=== PATIENT | male | born 1945 | race Caucasian/White ===

== ENCOUNTER 2022-06-01 05:38 | Observation (INO) | payer OTHER ==
[2022-05-29 11:25] VITALS: BP 178/77
[2022-05-29 11:31] LABS: BASOPHILS % (AUTO) 1.3 % (0.0-5.0); EOSINOPHILS % (AUTO) 1.5 % (0.0-8.0); HEMATOCRIT 41.3 % (42-54); LYMPHOCYTES % (AUTO) 33.8 % (21.0-51.0); MEAN CORPUSCULAR HEMOGLOBIN 30.2 pg (27.0-33.0); MEAN CORPUSCULAR HGB CONC 32.9 g/dL (32.0-36.0); MEAN CORPUSCULAR VOLUME 91.8 fL (79-99); MONOCYTES % (AUTO) 8.8 % (3.0-13.0); NEUTROPHILS % (AUTO) 54.2 % (40.0-77.0); PLATELET COUNT (AUTO) 233 K/uL (130-400); RED CELL DISTRIBUTION WIDTH 11.9 % (11.0-15.5); WHITE BLOOD COUNT (AUTO) 4.6 K/uL (4.8-10.8)
[2022-05-29 11:42] LABS: PROTHROMBIN TIME 10.9 SEC (9.6-11.6)
[2022-05-29 11:43] LABS: PARTIAL THROMBOPLASTIN TIME 28.1 SEC (26.3-35.5)
[2022-05-29 11:53] LABS: APPEARANCE,URINE CLEAR (CLEAR); BILIRUBIN,URINE NEGATIVE (NEGATIVE); COLOR,URINE LIGHT-YELLOW (YELLOW); GLUCOSE, URINE (UA) NEGATIVE (NEGATIVE); KETONES,URINE NEGATIVE (NEGATIVE); LEUKOCYTE ESTERASE ,URINE NEGATIVE Leu/uL (NEGATIVE); NITRATE,URINE NEGATIVE (NEGATIVE); OCCULT BLOOD,URINE NEGATIVE (NEGATIVE); PH,URINE 6.5 (5.0-8.0); PROTEIN,URINE NEGATIVE (NEGATIVE); UROBILINOGEN,URINE 0.2 mg/dL (0.2-1.0)
[2022-05-29 12:45] LABS: ALBUMIN 3.6 g/dL (3.5-5.0); CARBON DIOXIDE 30 mmol/L (21-32); CHLORIDE 102 mmol/L (101-111); GLOMERULAR FILTR. RATE CALC 79 mL/min (>90); GLUCOSE,RANDOM 97 mg/dL (70-105); POTASSIUM 3.9 mmol/L (3.5-5.1); SODIUM SERUM 138 mmol/L (136-145); UREA NITROGEN, BLOOD 14 mg/dL (7-18)
[2022-05-29 12:48] LABS: CRP QUANTITATIVE < 2.00 mg/L (0.00-9.0)
[~2022-06-01] VITALS: Ht 195.6 cm; Wt 108.3 kg
[2022-06-01] VITALS (25 sets, daily range): BP systolic 106–174; BP diastolic 59–90
[~2022-06-01 05:38] MED LIST: BUPIVACAINE/PF 0.5% 30ML VIAL ONE; BUPR-113 PO; CLOP75TA32 PO; EZET10TA48 PO; GLUC-252 PO; IRBE150T24 PO; KETOROLAC 30MG VIAL (30MG/ML) ONE; LEVO75CA5 PO; METO-409 PO; MONT-39 PO; MVIT PO; OMEG-148 PO; PREG100C55 PO; ROPIVACAINE 0.5% 5MG/ML 30ML IJ ONE; SERT-440 PO; TRANEXAMIC ACID 1000MG/10ML ONE
[2022-06-01] MEDS ORDERED: TRANEXAMIC ACID 1000MG/10ML ONE (06:17)
[2022-06-01] MEDS ORDERED: LACTATED RINGERS 1000ML 1,000 ML IV ONE (06:33)
[2022-06-01] MEDS ORDERED: CLINDAMYCIN IVPB 900MG/50ML 50 ML IV ONE (06:34)
[2022-06-01] MEDS ORDERED: PROPOFOL 10 MG/ML 20ML VIAL IV ONE (06:58)
[2022-06-01] MEDS ORDERED: LIDOCAINE PF 100MG/5ML (2%) SYRINGE 5ML ONE (06:58)
[2022-06-01] MEDS ORDERED: SUCCINYLCHOLINE CHLORIDE 20 MG/ML 10 ML VIAL ONE (06:58)
[2022-06-01] MEDS ORDERED: MIDAZOLAM HCL 1 MG/ML 2ML VIAL ONE (06:58)
[2022-06-01] MEDS ORDERED: ROPIVACAINE 0.5% 5MG/ML 30ML IJ ONE (06:58)
[2022-06-01] MEDS ORDERED: FENTANYL CITRATE PF 50 MCG/1 ML 2ML VIAL ONE (06:59)
[2022-06-01] MEDS ORDERED: ROCURONIUM 10MG/1ML SYR 10 MG/ML ML ONE (06:59)
[2022-06-01] MEDS ORDERED: GLYCOPYRROLATE 1 MG/5 ML SYRINGE ONE (07:32)
[2022-06-01] MEDS ORDERED: EPHEDRINE SULFATE 50 MG/ML AMPULE ONE (07:33)
[2022-06-01] MEDS ORDERED: DEXAMETHASONE SOD PHOSPHATE 4 MG/ML 1ML VIAL ONE (08:27)
[2022-06-01] MEDS ORDERED: NEOSTIGMINE 5MG/5ML SYR IV ONE (09:03)
[2022-06-01] MEDS ORDERED: ONDANSETRON 4MG INJ ONE (09:03)
[2022-06-01] MEDS ORDERED: TRANEXAMIC ACID 1000MG/10ML IV ONE (09:05)
[2022-06-01] MEDS ORDERED: FERROUS FUMARATE 324 MG TABLET PO PRN (09:30)
[2022-06-01] MEDS ORDERED: LIDOCAINE HCL-MPF 1% 2ML VIAL IV PRN (09:30)
[2022-06-01] MEDS: 0.9%NACL 1000ML 1,000 ML IV SCH ×2 (09:30→21:19)
[2022-06-01] MEDS ORDERED: POTASSIUM CHLORIDE 20MEQ/100ML 100 ML IV PRN (09:30)
[2022-06-01] MEDS ORDERED: CALCIUM CARB 500MG PO PRN (09:30)
[2022-06-01] MEDS ORDERED: TRAMADOL HCL 50 MG TABLET PO PRN (09:30)
[2022-06-01] MEDS ORDERED: DiphenhydrAMINE HCL 50 MG/ML VIAL IVP PRN (09:30)
[2022-06-01] MEDS ORDERED: ONDANSETRON 4MG INJ IVP PRN (09:30)
[2022-06-01] MEDS ORDERED: MEPERIDINE-PF 25 MG/ML SYG ONE (09:47)
[2022-06-01] MEDS: KETOROLAC 15MG/ML VIAL (15MG/ML) IV SCH ×2 (10:03→17:38)
[2022-06-01] MEDS ORDERED: ATOR-2 PO (10:53)
[2022-06-01] MEDS: HYDROCODONE/ACETAMINOPHEN 5/325 MG TAB PO PRN ×3 (11:10→21:24)
[2022-06-01] MEDS: PREGABALIN 100 MG CAPSULE PO SCH ×2 (13:54→21:21)
[2022-06-01] MEDS: CEFAZOLIN SODIUM 2 GM VIAL IVP SCH (17:37)
[2022-06-01] MEDS: GLUCOSAMINE-CHONDROITIN PO SCH (21:00)
[2022-06-01] MEDS: DOCUSATE SODIUM 100 MG CAP PO SCH (21:21)
[2022-06-01] MEDS: MONTELUKAST SODIUM 10 MG TAB PO SCH (21:21)
[2022-06-01] MEDS: ATORVASTATIN 40 MG TABLET PO SCH (21:21)
[2022-06-02] MEDS: KETOROLAC 15MG/ML VIAL (15MG/ML) IV SCH (00:14)
[2022-06-02] MEDS: CEFAZOLIN SODIUM 2 GM VIAL IVP SCH (00:14)
[2022-06-02 04:35] VITALS: BP 137/58
[2022-06-02 05:02] LABS: HEMATOCRIT 28.2 % (42-54); MEAN CORPUSCULAR HEMOGLOBIN 31.1 pg (27.0-33.0); MEAN CORPUSCULAR VOLUME 94.3 fL (79-99); RED BLOOD CELL COUNT(AUTO) 2.99 MIL/uL (4.50-6.20); RED CELL DISTRIBUTION WIDTH 11.9 % (11.0-15.5)
[2022-06-02 05:18] LABS: CREATININE 0.9 mg/dL (0.5-1.5)
[2022-06-02 05:24] LABS: POTASSIUM 2.7 mmol/L (3.5-5.1)
[2022-06-02] MEDS: 0.9%NACL 1000ML 1,000 ML IV SCH (05:30)
[2022-06-02] MEDS: KCL 20 MEQ ERTAB PO PRN ×2 (06:22→09:36)
[2022-06-02] MEDS: LEVOTHYROXINE 75 MCG TABLET PO SCH (06:22)
[2022-06-02] MEDS: HYDROCODONE/ACETAMINOPHEN 5/325 MG TAB PO PRN ×3 (06:25→19:05)
[2022-06-02 08:11] VITALS: BP 118/52
[2022-06-02] MEDS: ASPIRIN 325MG TAB PO SCH (09:00)
[2022-06-02] MEDS: METOPROLOL SUCCINATE 50 MG TAB.SR.24H PO SCH ×2 (09:00→09:38)
[2022-06-02] MEDS: GLUCOSAMINE-CHONDROITIN PO SCH ×2 (09:00→20:55)
[2022-06-02] MEDS: EZETIMIBE 10 MG TAB PO SCH (09:00)
[2022-06-02] MEDS: LOSARTAN 50 MG TABLET PO SCH ×2 (09:00→09:38)
[2022-06-02] MEDS: BUPROPION HCL 150 MG TABLET.SA PO SCH (09:00)
[2022-06-02] MEDS: POLYETHYLENE GLYCOL 3350 17 GM POWD.PACK PO SCH (09:36)
[2022-06-02] MEDS: KETOROLAC 15MG/ML VIAL (15MG/ML) IV PRN ×2 (09:36→14:54)
[2022-06-02] MEDS: CLOPIDOGREL 75MG TAB PO SCH (09:37)
[2022-06-02] MEDS: DOCUSATE SODIUM 100 MG CAP PO SCH ×2 (09:37→20:54)
[2022-06-02] MEDS: CYCLOBENZAPRINE HCL 10 MG TABLET PO PRN ×2 (09:37→16:10)
[2022-06-02] MEDS: PREGABALIN 100 MG CAPSULE PO SCH ×3 (09:37→20:54)
[2022-06-02] MEDS: FISH OIL 1000 MG/CAP PO SCH (09:37)
[2022-06-02] MEDS: SERTRALINE HCL 50 MG TABLET PO SCH (09:37)
[2022-06-02] MEDS: MULTIVITAMIN TABLET PO SCH (09:38)
[2022-06-02 11:02] VITALS: BP 114/41
[2022-06-02] MEDS: POTASSIUM CHLORIDE 10% ELIXIR 20 MEQ/15 ML UDCUP PO PRN ×2 (14:54→14:55)
[2022-06-02 16:29] VITALS: BP 153/59
[2022-06-02] MEDS: ATORVASTATIN 40 MG TABLET PO SCH (20:53)
[2022-06-02] MEDS: MONTELUKAST SODIUM 10 MG TAB PO SCH (20:54)
[2022-06-03 00:14] VITALS: BP 164/74
[2022-06-03 05:02] VITALS: BP 150/66
[2022-06-03] MEDS: LEVOTHYROXINE 75 MCG TABLET PO SCH (06:28)
[2022-06-03] MEDS: HYDROCODONE/ACETAMINOPHEN 5/325 MG TAB PO PRN ×2 (06:31→12:18)
[2022-06-03 07:33] VITALS: BP 101/52
[2022-06-03] MEDS: POLYETHYLENE GLYCOL 3350 17 GM POWD.PACK PO SCH (08:52)
[2022-06-03] MEDS: SERTRALINE HCL 50 MG TABLET PO SCH (08:52)
[2022-06-03] MEDS: MULTIVITAMIN TABLET PO SCH (08:53)
[2022-06-03] MEDS: LOSARTAN 50 MG TABLET PO SCH (08:53)
[2022-06-03] MEDS: CLOPIDOGREL 75MG TAB PO SCH (08:53)
[2022-06-03] MEDS: DOCUSATE SODIUM 100 MG CAP PO SCH (08:53)
[2022-06-03] MEDS: FISH OIL 1000 MG/CAP PO SCH (08:53)
[2022-06-03] MEDS: CYCLOBENZAPRINE HCL 10 MG TABLET PO PRN (08:54)
[2022-06-03] MEDS: PREGABALIN 100 MG CAPSULE PO SCH ×2 (08:54→15:05)
[2022-06-03] MEDS: GLUCOSAMINE-CHONDROITIN PO SCH (08:55)
[2022-06-03] MEDS: EZETIMIBE 10 MG TAB PO SCH (08:55)
[2022-06-03] MEDS: ASPIRIN 325MG TAB PO SCH (08:55)
[2022-06-03] MEDS: BUPROPION HCL 150 MG TABLET.SA PO SCH (09:00)
[2022-06-03] MEDS: METOPROLOL SUCCINATE 50 MG TAB.SR.24H PO SCH (09:00)
[2022-06-03 11:17] VITALS: BP 131/50
[2022-06-03] MEDS ORDERED: HYDR-4060 PO (14:51)
[2022-06-03] MEDS ORDERED: DOCU-116 PO (14:51)
[2022-06-03] MEDS ORDERED: CYCL-309 PO (14:51)
[2022-06-03 15:43] VITALS: BP 140/52
[2022-06-04] MEDS ORDERED: BISACODYL 10 MG SUPP.RECT RC PRN (09:30)
== END 2022-06-03 16:55 | disposition home health service (06) ==
LOC: DAH 05:38 → DAHIP 05:39 → 4BH 11:40
PROVIDERS: ADMIT Student in an Organized Health Care Education/Training Program; ATTEND Student in an Organized Health Care Education/Training Program
DX: M17.12 Unilateral primary osteoarthritis, left knee (principal); Z20.822 Contact with and (suspected) exposure to COVID-19; M25.562 Pain in left knee; G89.29 Other chronic pain; D62 Acute posthemorrhagic anemia; E87.6 Hypokalemia; E83.51 Hypocalcemia; E03.9 Hypothyroidism, unspecified; I10 Essential (primary) hypertension; F32.9 Major depressive disorder, single episode, unspecified; Z79.82 Long term (current) use of aspirin; Z79.899 Other long term (current) drug therapy; Z98.890 Other specified postprocedural states; Z79.02 Long term (current) use of antithrombotics/antiplatelets; Z90.49 Acquired absence of other specified parts of digestive tract
CPT/HCPCS: 82040; 80048 ×2; 85025; 85610; 85730; 87088; 84134; 86140; 87426; 81003; 36415 ×3; 87641; 27447; 96374; 96375; 64447; 73560; 97161; 97039 ×5; 97530 ×3; 96376; 84132; 85027; 97116 ×4; 82310; J1100; G0378 ×50; A4663; A4215 ×2; A4600; J7120; J3010; J3490 ×7; J2710; J0330; J7030; J2001; J2250; J2704; J2405; J1885 ×6; J2175; J2795 ×2; J0690 ×2; C1713; G0168; A4649 ×4; C1776; A6255; A5120; A4223; A4222; A4221; 76942